=== PATIENT | male | born 2000 | race Caucasian/White ===

== ENCOUNTER → 2019-07-11 15:15 | Outpatient (BNVA) | payer MEDICAID, SELFPAY | PROVIDERS: Visit Provider Nurse Practitioner Family | DX: J00 Acute nasopharyngitis [common cold] (principal); R50.9 Fever, unspecified | CPT/HCPCS: 87081; 87804; 87880 ==

== ENCOUNTER → 2019-07-28 11:09 | Outpatient (BNVA) | payer MEDICAID, SELFPAY | PROVIDERS: Visit Provider Nurse Practitioner Family | DX: J10.1 Influenza due to other identified influenza virus with other respiratory manifestations (principal); R50.9 Fever, unspecified; J30.89 Other allergic rhinitis | CPT/HCPCS: 87804 ==

== ENCOUNTER 2020-06-15 07:37 | Emergency (ER) | payer MEDICAID, SELFPAY ==
[2020-06-15 07:42] VITALS: BP 146/80; PULSE 80; RESP 16; TEMP 36.7; O2SAT 98; BMI 19.5
--- NOTE | 2020-06-15 07:52 | ED_ITS ---
HPI - Abdominal Pain General: Chief Complaint: Abdominal Pain Stated Complaint: ABDOMINAL PAIN Time Seen by Provider: 06/15/20 07:39 History of Present Illness: HPI narrative: 19 yo male with complaints of supraumbilical abdominal pain up into the epigastric area that began last night around 2 AM. No nausea vomiting or diarrhea. Complains of some crampy-like pain. He is not had a fever. Denies dysuria urgency or frequency. He does take omeprazole [id number] twice daily. MD elicited complaint: abdominal pain Pertinent past history: none Onset (ago): hour(s) Pain Consistency: intermittent Location: Epigastric and Periumbilical Severity: moderate Quality: cramping Radiation: none Migration to: no migration Exacerbating factors: nothing Relieving factors: nothing Associated Symptoms: Denies anorexia, belching, bloating, change in bowel habits, change in stool character, chills, coffee ground emesis, constipation, GI cramping, diarrhea, dyspepsia, dysuria, excessive flatus, fever(s), heartburn, hematochezia, hematuria, hematemesis, fecal incontinence, loose stools, melena, nausea, poor appetite, syncope and vomiting Review of Systems Const: Denies: fever(s) or chills ENMT: Denies: throat pain, ear or mastoid pain, nasal discharge or nasal congestion Card: Denies: syncope Resp: Denies: dyspnea, productive cough or non-productive cough GI: Denies: nausea, vomiting, hematemesis, coffee ground emesis, heartburn, diarrhea, constipation, bloating, GI cramping, belching, excessive flatus, fecal incontinence, change in bowel habits, change in stool character, hematochezia or melena : Denies: dysuria or hematuria Skin/Breast: Denies: rash or pruritus PFSH ED PFSH: Medical History (Updated 06/15/20 @ 09:16 by Tim Hector DO) GERD (gastroesophageal reflux disease) Social History Smoking and tobacco status: never smoked Second hand smoke exposure: Yes Alcohol intake: never Substance/Drug Use: never Lives independently: No Household members: family Marital status: Single service: No Current occupational status: disabled History of recent travel: No Current gender identity: Male Physical Exam Const: COMMON NORMALS: no acute distress GENERAL APPEARANCE: cooperative and comfortable ORIENTATION/CONSCIOUSNESS: Yes awake, Yes oriented to person, Yes oriented to place and Yes oriented to time HENMT: COMMON NORMALS: normocephalic, atraumatic and hearing grossly normal bilaterally HEAD & SCALP: normocephalic and atraumatic Neck/C-Spine: COMMON NORMALS: no JVD Resp: COMMON NORMALS: normal respiratory effort, No retractions, No use of accessory muscles and clear to auscultation bilaterally AUSCULTATION: clear to auscultation bilaterally Cardio: COMMON NORMALS: no JVD, regular rate, regular rhythm and No murmurs present (Cardio) RATE: regular rate RHYTHM: regular rhythm GI: COMMON NORMALS: Soft to palpation and No hepatosplenomegaly present AUSCULTATION: Yes normoactive bowel sounds PALPATION: Yes Soft to palpation, No Tenderness to palpation present (GI), No Guarding due to palpation present (GI) and Yes No hepatosplenomegaly present Extremity: COMMON NORMALS: normal to inspection, capillary refill normal, no clubbing, cyanosis or edema, no calf tenderness and no pedal edema Neuro: SENSORIUM/ORIENTATION: Yes oriented to person, Yes oriented to place and Yes oriented to time Skin: COMMON NORMALS: no rashes or lesions noted GENERAL SKIN EXAM: no rashes or lesions noted Course Vital Signs: Vital signs: Vital Signs Temperature 98.1 F 06/15/20 07:42 Pulse Rate 80 06/15/20 07:42 Respiratory Rate 16 06/15/20 07:42 Blood Pressure 146/80 06/15/20 07:42 Pulse Oximetry 98 06/15/20 07:42 MDM - Abdominal Pain MDM Narrative: Medical decision making narrative: CT shows large amount of stool in colon labs unremarkable. We will discharge him home with magnesium citrate to relieve constipation should take 150 mL every 6 8 hours until desired results achieved. Follow-up as needed return if is worsening problems advised patient he would have significant cramping after he using the magnesium citrate until he passes the stool and air. Lab Data: Labs: Lab Results 06/15/20 06/15/20 Range/Units 07:47 07:47 WBC 8.1 (4.5-13.0) 10^3/ uL RBC 4.89 (4.1-5.3) 10^6/u L Hgb 15.2 (11.7-16.6) g/dL Hct 46.0 (42.0-52.0) % MCV 94.1 H (80-94) fL MCH 31.1 (28.0-34.0) pg MCHC 33.0 (30.0-36.0) g/dL RDW 11.7 L (12.1-15.1) % Plt Count 245 (130-400) 10^3/c mm MPV 9.2 (7.4-10.4) fL Neut % (Auto) 70.5 % Lymph % (Auto) 20.6 % [place] % (Auto) 5.5 % Eos % (Auto) 2.8 % Baso % (Auto) 0.4 % Neut # (Auto) 5.71 (1.8-8.0) 10^3/u L Lymph # (Auto) 1.7 (1.5-6.5) 10^3/u L [place] # (Auto) 0.5 (0.2-0.9) 10^3/u L Eos # (Auto) 0.2 (0.0-0.8) 10^3/u L Baso # (Auto) 0.0 (0.0-0.1) 10^3/u L Nucleated RBC % (a uto) 0 % Nucleated RBCs # 0.0 /100WBC Sodium 138 (136-145) mmol/L Potassium 4.0 (3.5-5.1) mmol/L Chloride 101 (98-107) mmol/L Carbon Dioxide 31 H (22-29) mmol/L Anion Gap 10.0 (5-19) BUN 12 (6-20) mg/dL Creatinine 0.7 (0.7-1.2) mg/dL GFR Calculation 143.8 H (90-130) mL/min Glucose 133 H (65-115) mg/dL Calculated Osmolal ity 288 (285-295) mOsm/k g Calcium 9.9 (8.5-10.5) mg/dL Total Bilirubin 0.5 (0.15-1.2) mg/dL AST 18 (0-40) U/L ALT 16 (0-41) U/L Alkaline Phosphata se 66 (40-130) IU/L Total Protein 7.2 (6.6-8.7) g/dL Albumin 4.7 (3.5-5.2) g/dL Globulin 2.5 (1.3-4.6) g/dL Lipase 39 (13-60) U/L Discharge Plan Discharge Patient Disposition: Home Clinical Impression: Constipation Condition: Stable Prescriptions: New magnesium citrate Solution 150 ml PO BID PRN (Reason: constipation) Qty: 296 RF: 0 No Action latanoprost [Xalatan] 0.005 % drops 1 drop ophthalmic (eye) DAILY@2100 RF: 0 omeprazole 20 mg capsule,delayed release(DR/EC) 20 mg PO BID@1200,2100 RF: 0 fluticasone propionate 50 mcg/actuation spray,suspension 1 spray INTRANASAL BID@1200,2100 RF: 0 Children's Zyrtec Allergy 1 mg/mL solution 10 mg PO DAILY@1200 RF: 0 Discharge Orders: Discharge ED (Routine); Ordered 06/15/20 Ordered By: Tim Hector Discharge Diet: Clear Liquid Discharge Activity: Resume usual activity Activity Restrictions/Additional Instructions: 150 mL of magnesium citrate every 6-8 hours until achieves results. Coding Level of Care Code ED Drug Safety Specialist for Chg Fwd Exam Comprehensive
[2020-06-15 07:53] LABS: Basophils % 0.4 %; Eosinophils # 0.2 10^3/uL (0.0-0.8); Eosinophils % 2.8 %; Hemoglobin 15.2 g/dL (11.7-16.6); Lymphocytes # 1.7 10^3/uL (1.5-6.5); Lymphocytes % 20.6 %; Mean Corpuscular Hemoglobin 31.1 pg (28.0-34.0); Mean Corpuscular Volume 94.1 fL (80-94); Mean Platelet Volume 9.2 fL (7.4-10.4); Monocytes # 0.5 10^3/uL (0.2-0.9); Monocytes % 5.5 %; Neutrophils # 5.71 10^3/uL (1.8-8.0); Neutrophils % 70.5 %; Nucleated Red Blood Cells % 0 %; Platelet Count 245 10^3/cmm (130-400); Red Blood Count 4.89 10^6/uL (4.1-5.3); Red Cell Distribution Width 11.7 % (12.1-15.1); White Blood Count 8.1 10^3/uL (4.5-13.0)
--- NOTE | 2020-06-15 08:16 | CTR_ITS ---
PROCEDURE INFORMATION: Exam: CT Abdomen And Pelvis With Contrast Exam date and time: 06/15/2020 8:17 AM Age: 19 years old Clinical indication: Abdominal pain; Generalized; Additional info: Abd pain TECHNIQUE: Imaging protocol: Computed tomography of the abdomen and pelvis with intravenous contrast. Radiation optimization: All CT scans at this facility use at least one of these dose optimization techniques: automated exposure control; mA and/or kV adjustment per patient size (includes targeted exams where dose is matched to clinical indication); or iterative reconstruction. Contrast material: OMNI 300; Contrast volume: 95 ml; Contrast route: INTRAVENOUS (IV); COMPARISON: No relevant prior studies available. RADIATION DOSE METRICS: Total DLP (mGy-cm): 258.63 FINDINGS: Lungs: Interstitial prominence and 3-4 mm nodules in the lingula and left lower lobe.For patients at low risk (minimal or absent history of smoking and of other known risk factors), no routine follow-up is indicated. For patients at high risk (history of smoking or of other known risk factors), consider optional CT Chest at 12 months. (Reference: [facility]). Liver: No focal hepatic mass. Gallbladder and bile ducts: No cholelithiasis or biliary ductal dilatation. Pancreas: No pancreatic mass or ductal dilatation. New Spleen: No splenomegaly. Adrenal glands: Unremarkable adrenals. Kidneys and ureters: Normal renal morphology. No hydronephrosis. Stomach and bowel: Bowel dilatation, disproportionately involving the colon, along with prominent stool. Diverticula, without pericolonic inflammation. Appendix: No acute appendicitis. Intraperitoneal space: No free fluid. Vasculature: Normal caliber of the abdominal aorta. Lymph nodes: Subcentimeter lymph nodes. Urinary bladder: Bladder dilatation. Reproductive: Unremarkable as visualized. Bones/joints: Subcentimeter pelvic bone islands. Soft tissues: Small fat containing umbilical hernia. CT/CT abdomen pelvis w con* [id number] IMPRESSION: 1. No acute inflammatory process in the abdomen or pelvis. 2. Bowel dilatation, disproportionately involving the colon, along with prominent stool. 3. Additional findings as described above. Radiation Dose CTDIVOL = (mGy): DLP = 258.63 (mGy-cm)
[2020-06-15] MEDS: sodium chloride 0.9% 1,000 ML 999 ML IV (08:30)
[2020-06-15 08:35] LABS: Alanine Aminotransferase 16 U/L (0-41); Albumin Level 4.7 g/dL (3.5-5.2); Alkaline Phosphatase 66 IU/L (40-130); Aspartate Amino Transferase 18 U/L (0-40); Blood Urea Nitrogen 12 mg/dL (6-20); Calcium 9.9 mg/dL (8.5-10.5); Carbon Dioxide 31 mmol/L (22-29); Chloride 101 mmol/L (98-107); Creatinine Clr Calc Pharmacy 148.4276; Globulin 2.5 g/dL (1.3-4.6); Glomerular Filtration Rate 143.8 mL/min (90-130); Glucose 133 mg/dL (65-115); Lipase 39 U/L (13-60); Osmolality Calculated 288 mOsm/kg (285-295); Sodium 138 mmol/L (136-145); Total Bilirubin 0.5 mg/dL (0.15-1.2); Total Protein 7.2 g/dL (6.6-8.7)
[2020-06-15] MEDS: ondansetron 2 mg/ML SDV 2 mL 4 MG IVP (08:40)
[2020-06-15] MEDS: iohexol 300 mg/mL 100 mL Btl IV (08:43)
[2020-06-15 09:33] VITALS: BP 129/67; PULSE 76; RESP 18; O2SAT 99
== END 2020-06-15 09:33 | disposition home or self-care (01) ==
PROVIDERS: Emergency Provider Family Medicine
DX: K59.00 Constipation, unspecified (principal); Z77.22 Contact with and (suspected) exposure to environmental tobacco smoke (acute) (chronic)
CPT/HCPCS: 12345; 74177; 80053; 83690; 85025; 96361; 96374; 99282; 99283; J2405; J7030; Q9967

== ENCOUNTER → 2020-10-03 11:48 | Outpatient (BNVA) | payer MEDICAID, SELFPAY | PROVIDERS: Visit Provider Nurse Practitioner Family | DX: K21.9 Gastro-esophageal reflux disease without esophagitis (principal); J30.89 Other allergic rhinitis | CPT/HCPCS: 80053; 82607; 84443; 85025 ==

== ENCOUNTER → 2022-01-20 11:28 | Outpatient (BNVA) | payer BC, MEDICAID, SELFPAY | PROVIDERS: Visit Provider Nurse Practitioner Family | DX: J30.89 Other allergic rhinitis (principal); K21.9 Gastro-esophageal reflux disease without esophagitis | CPT/HCPCS: 80053 ==

== ENCOUNTER → 2023-02-03 15:08 | Outpatient (BNVA) | payer BC, MEDICAID, SELFPAY | PROVIDERS: PCP Nurse Practitioner Family; Visit Provider Nurse Practitioner Family | DX: J02.9 Acute pharyngitis, unspecified (principal); R50.9 Fever, unspecified; Z20.822 Contact with and (suspected) exposure to COVID-19 | CPT/HCPCS: 87071; 87400; 87426; 87880 ==

== ENCOUNTER 2023-03-18 06:42 | Day surgery (SDC) | payer MEDICAID, SELFPAY ==
[2023-03-18 06:54] VITALS: BP 133/84; PULSE 71; RESP 18; TEMP 36.8; O2SAT 98
[2023-03-18 07:00] VITALS: BMI 20.3
[2023-03-18] MEDS: sodium chloride 0.9% 1,000 ML 30 ML IV (07:07)
--- NOTE | 2023-03-18 07:30 | W.PM.OPSUD ---
Surgery/Procedure H&P Update DATE OF PROCEDURE: March 18, 2023 DATE H&P PERFORMED: 03/03/23 H&P UPDATE INFORMATION: I have reviewed H&P completed within last 30 days, I have examined patient prior to procedure and No changes to prior documentation PLANNED PROCEDURE: Operation Date: 03/18/23 08:00 Proposed Procedures p EGD [id number],R10.13(Not Applicable) - Zach Hudson, DO
--- NOTE | 2023-03-18 07:31 | ANES.PREANE2 ---
Pre-Anesthetic Assessment Height/Weight: Height 1.7 m Weight 58.967 kg Temp Pulse Resp BP Pulse Ox O2 Del Method 98.3 F 71 18 133/84 98 Room Air 03/18/23 06:54 03/18/23 06:54 03/18/23 06:54 03/18/23 06:54 03/18/23 06:54 03/18/23 06:54 Preop Diagnosis: Epigastric Pain Operation Date: 03/18/23 08:00 Proposed Procedures p EGD [id number],R10.13(Not Applicable) - Zach Hudson DO Familial anesthetic complications: None Was Beta Leonardo taken within 24 hours: N/A Was Clonidine taken within 24 hours: N/A Last intake: Intake Last Liquid Date 03/17/23 Last Liquid Time 22:00 Last Solid Date 03/17/23 Last Solid Time 22:00 Social No alcohol and No tobacco Exam alert, oriented x 3, clear to auscultation bilaterally and regular rate & rhythm Airway Submandibular: within normal limits Cervical ROM: within normal limits Mallampati: Class I Dentition: full History/ROS No significant history except as noted, No significant complaints and Other Pulmonary None reported CV/HEM None reported None reported Hepatic None reported GI Gastroesophageal Reflux Disease Epigastric pain Metabolic None reported Musc/skel None reported Neuropsych None reported Anesthetic Plan ASA status: 1 Anesthesia: Anesthesia Evaluation, General and MAC Risk of > 500 ml blood loss (7ml/kg in children): No Medications/Allergies Home Medications Medication Instructions Recorded Confirmed Last Taken Type pantoprazole 40 mg tablet,delayed 40 mg PO BID 6 weeks #84 tabs 03/03/23 03/18/23 03/17/23 Rx release (Protonix) cetirizine 10 mg tablet 10 mg PO DAILY PRN allergies 03/17/23 03/18/23 03/17/23 History fluticasone propionate 50 1 spray intranasal BID@1200,2100 03/17/23 03/18/23 03/17/23 History mcg/actuation nasal PRN allergies spray,suspension Allergies Allergy/AdvReac Type Severity Reaction Status Date / Time No Known Allergies Allergy Verified 03/17/23 09:10 Current Medications Generic Name Dose Route Start Last Admin Trade Name Freq PRN Reason Stop Dose Admin Sodium Chloride 1,000 mls @ 30 mls/hr 03/18/23 06:45 03/18/23 07:07 Sodium Chloride 0.9% IV 03/19/23 06:44 30 mls/hr .Q24H [place] Administration PFSH Anesthesia Medical History Common cold GERD (gastroesophageal reflux disease) Influenza A Patella-femoral syndrome Surgical History No pertinent past surgical history Social History Smoking and tobacco/nicotine status: never used tobacco/nicotine Second hand smoke exposure: Yes Alcohol intake: never Substance/Drug Use: never Lives independently: No Household members: family Marital status: Single service: No Current occupational status: disabled Current gender identity: Male Data Anesthesia Cardiac Studies: No Data to Display
[2023-03-18 08:07] VITALS: BP 101/53; PULSE 62; RESP 14; TEMP 36.4; O2SAT 97
[2023-03-18 08:17] VITALS: BP 101/54; PULSE 74; RESP 16; O2SAT 95
[2023-03-18 08:27] VITALS: BP 117/77; PULSE 70; RESP 18; TEMP 36.4; O2SAT 97
--- NOTE | 2023-03-18 08:40 | ANE.PACU2 ---
Inpatient post-anesthesia follow up: Airway intact: Yes Vital signs: Temperature 97.6 F Pulse Rate 70 Respiratory Rate 18 Blood Pressure 117/77 Pulse Oximetry 97 Oxygen Delivery Me thod Room Air Oxygen Flow Rate Fraction of Inspir ed Oxygen Hydration adequate: Yes Nausea and vomiting: No Pain level: 1 Mental status: Baseline
== END 2023-03-18 08:40 | disposition home or self-care (01) ==
PROVIDERS: PCP Nurse Practitioner Family; Visit Provider Surgery
PROC: 0DJ08ZZ Inspection of Upper Intestinal Tract, Via Natural or Artificial Opening Endoscopic (ICD-10-PCS; CPT 43235; principal; 2023-03-18 08:00)
DX: R10.13 Epigastric pain (principal); K20.90 Esophagitis, unspecified without bleeding; K29.50 Unspecified chronic gastritis without bleeding; K21.9 Gastro-esophageal reflux disease without esophagitis
CPT/HCPCS: 43239; 88305; 88342; J2704; J7030

== ENCOUNTER 2023-04-16 10:07 | Outpatient (CLI) | payer MEDICAID, SELFPAY ==
--- NOTE | 2023-04-16 11:45 | US_ITS ---
WS: [id number] RIGHT UPPER QUADRANT ULTRASOUND HISTORY: GERD/ abdominal pain COMPARISON: None available. Liver: 11.6 cm in length. Normal size liver and echogenicity. No bile duct dilatation or mass. Portal Vein: Normal hepatopetal flow with monophasic waveform. Gallbladder: Normally distended gallbladder with no stones or wall thickening. CBD: 0.2 cm Pancreas: Normal size and echogenicity. Right kidney: 9.3 cm in length. Normal size and echogenicity. No hydronephrosis or mass. Aorta and IVC: Unremarkable abdominal aorta and IVC. No ascites. IMPRESSION: Normal RIGHT upper quadrant ultrasound.
== END 2023-04-16 10:08 | disposition home or self-care (01) ==
LOC: RAD 10:07
PROVIDERS: PCP Nurse Practitioner Family; Visit Provider Surgery
DX: K21.9 Gastro-esophageal reflux disease without esophagitis (principal); R10.9 Unspecified abdominal pain
CPT/HCPCS: 76705

== ENCOUNTER → 2025-01-15 14:02 | Outpatient (BNVA) | payer MEDICAID, SELFPAY | PROVIDERS: PCP Nurse Practitioner Family; Visit Provider Nurse Practitioner Family | DX: M79.641 Pain in right hand (principal) | CPT/HCPCS: 73130 ==

== ENCOUNTER → 2025-03-02 13:37 | Outpatient (BNVA) | payer OTHER, MEDICAID, SELFPAY | PROVIDERS: PCP Nurse Practitioner Family; Visit Provider Nurse Practitioner Family | DX: J02.9 Acute pharyngitis, unspecified (principal) | CPT/HCPCS: 87880 ==